=== PATIENT | male | born 1975 | race Two or more races ===

== ENCOUNTER 2019-05-12 01:34 | Emergency (ER) | payer OTHER ==
[~2019-05-12] VITALS: Ht 182.9 cm; Wt 97.5 kg
[2019-05-12 02:12] LABS: Hematocrit 42.8 % (41.0-53.0); Mean Corpuscular Hemoglobin 31.4 pg (28.0-32.0); Mean Corpuscular Hgb Conc. 35.1 g/dL (32.0-36.0); Mean Corpuscular Volume 89.6 fL (80.0-100.0); Platelet Count (auto) 261 10^3/uL (140-450); Red Blood Cells 4.78 10^6/uL (4.5-5.90); White Blood Cell 5.7 10^3/uL (4.4-10.8)
[2019-05-12 02:13] LABS: Basophils % (manual) 0 (0.0-2.0); Metamyelocytes % 0
[2019-05-12 02:14] LABS: Blast Cells 0; Myelocytes % 0; Promyelocytes % 0; Reactive Lymphocytes 0
[2019-05-12 02:26] LABS: INR 1.11 (0.9-1.15); Partial Thromboplastin Time 28.8 sec (23.64-32.05)
[2019-05-12 02:27] LABS: Albumin 4.1 g/dL (3.4-5.0); BUN/Creatinine Ratio 13.6; Calcium 9.1 mg/dL (8.5-10.1); Potassium 4.3 mmol/L (3.5-5.1)
[2019-05-12 02:29] LABS: Bilirubin, Total 0.4 mg/dL (0.2-1.0)
[2019-05-12 02:50] LABS: Band Neutrophils % (manual) 1; Eosinophils % (manual) 3 (0-7); Lymphocytes % (manual) 70 (10.0-50.0); Monocytes % (manual) 5 (0-12)
[2019-05-12] MEDS ORDERED: cefTRIAXone SOD 1,000 MG VL IM ONE (03:30)
[2019-05-12] MEDS ORDERED: IBUPROFEN 800 MG TAB PO ONE (03:30)
[2019-05-12] MEDS ORDERED: LIDOCAINE 1% HCL (LOCAL ANESTH.) INJ 20ML MDV IJ ONE (03:30)
[2019-05-12 03:37] VITALS: BP 131/78
== END 2019-05-12 04:10 | disposition home or self-care (01) ==
LOC: EEVIPCON 01:36 → ER 01:36
DX: N45.1 Epididymitis (principal)
CPT/HCPCS: 36415; 74176; 80053; 85007; 85027; 85610; 85730; 96372; 99284; J0696; J2001